=== PATIENT | male | born 2000 | race Caucasian/White ===

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

== ENCOUNTER 2021-03-05 18:30 | Emergency (ER) | payer BC ==
[~2021-03-05] VITALS: Ht 167.6 cm; Wt 53.7 kg
--- NOTE | 2021-03-05 19:14 | NUR ---
PT PRESENTS TO ER WITH GIRLFRIEND AT BEDSIDE, PTS PENIS IS SWOLLEN AND FORESKIN WONT COME BACK OVER THE HEAD, PTS PENIS HEAD IS A LITTLE CYANOTIC, PT REPORTS THIS HAPPENED ABOUT 2 HOURS AGO, PT STATES THIS HAS HAPPENED BEFORE AND PT RECIEVED STEROIDS THE LAST TIME AND THE STEROIDS WERE EFFECTIVE, PT REPORTS STILL FEELING SENSATION IN HIS PENIS, PT A/OX4
--- NOTE | 2021-03-05 20:06 | NUR ---
PT GETTING ANXIOUS ABOUT HIS PENIS, THIS RN ASSURED HIM THAT MD WILL BE IN SHORTLY
[2021-03-05] MEDS ORDERED: methylPREDNISolone SOD SUCC 125 MG/2 ML ONE (20:22)
[2021-03-05] MEDS ORDERED: methylPREDNISolone SOD SUCC 125 MG/2 ML IVPush ONE (20:30)
[2021-03-05] MEDS ORDERED: SODIUM CHLORIDE FLUSH 10ML SYR IVF ONE (20:30)
--- NOTE | 2021-03-05 20:58 | NUR ---
HEAD OF PTS PENIS RETURNING TO NORMAL SIZE, FORESKIN ABLE TO ROLL OVER HEAD OF PENIS, PT REPORTS FEELING BETTER, PT NOT ANXIOUS ANY MORE, PT STATED, "LOOKS LIKE I GET TO KEEP MY WILLIAM"
[2021-03-05 21:22] VITALS: BP 126/72
== END 2021-03-05 21:24 | disposition home or self-care (01) ==
LOC: ED 19:00
DX: N47.2 Paraphimosis (principal)
CPT/HCPCS: 96374; 99283; J2930